=== PATIENT | male | born 1940 | race Caucasian/White ===

== ENCOUNTER 2023-01-30 13:59 | Outpatient (CLI) | payer MEDICARE ==
[~2023-01-30 13:59] MED LIST: Magnevist 469MG/ML 20 ML VIAL ONE
== END 2023-01-30 14:00 | disposition home or self-care (01) ==
LOC: CSHMRI 13:59
PROVIDERS: ATTEND Internal Medicine Hematology & Oncology
DX: C20 Malignant neoplasm of rectum (principal)
CPT/HCPCS: 72197; 80053; 93005; 93010; A9579

== ENCOUNTER 2023-09-10 13:08 | Outpatient (CLI) | payer MEDICARE ==
[~2023-09-10 13:08] MED LIST changes: +Iopamidol 300 61% 100 ML VIAL FS ONE; -Magnevist 469MG/ML 20 ML VIAL ONE
== END 2023-09-10 13:09 | disposition home or self-care (01) ==
LOC: CSHCT 13:08
PROVIDERS: ATTEND Internal Medicine Hematology & Oncology
DX: C20 Malignant neoplasm of rectum (principal); M54.50 Low back pain, unspecified; R91.8 Other nonspecific abnormal finding of lung field; M84.48XA Pathological fracture, other site, initial encounter for fracture; M62.9 Disorder of muscle, unspecified; M79.89 Other specified soft tissue disorders
CPT/HCPCS: 71260; 72132; 72197; 74160; Q9967